=== PATIENT | female | born 1955 | race Caucasian/White ===

== ENCOUNTER 2018-03-25 10:39 | Emergency (ER) | payer BC ==
[2018-03-25] MEDS ORDERED: HYDROcodone/ACETAMIN 5-325 MG* 1 TAB PO ONE (11:43)
[2018-03-25] MEDS ORDERED: Ondansetron ODT TAB* 4 MG SL ONE (11:43)
[2018-03-25] MEDS ORDERED: predniSONE TAB* 5 MG PO ONE (11:44)
[2018-03-25] MEDS ORDERED: predniSONE TAB* 5 MG ONE (11:56)
[2018-03-25] MEDS ORDERED: predniSONE TAB* 20 MG ONE (11:56)
--- NOTE | 2018-03-25 12:44 | RAD ---
Indication: Chronic back pain with worsening following bending over yesterday. RIGHT leg weakness. Comparison: June 14, 2016 DEXA scan. October 20, 2015 radiographs. January 10, 2014 CT. Technique: Noncontrast CT lumbar sacral spine. Multiplanar reformation. Report: Minimal calcific plaque of normal diameter abdominal aorta and common iliac arteries. Negative for fracture or spondylolysis at any level. Normal vertebral alignment without spondylolisthesis at any level. Multilevel very mild vertebral and plate osteophytosis. T12-L1: Unremarkable disc level for age without acquired spinal stenosis. L1-L2: Unremarkable disc level for age without acquired spinal stenosis. L2-L3: Slight annular disc bulge. Negative for significant acquired spinal stenosis. L3-L4: Mild annular disc bulge. Negative for significant acquired spinal stenosis. L4-L5: Mild annular disc bulge. Degenerative spondylosis and facet joint osteoarthritis results in mild acquired central canal stenosis with interval worsening. No significant foraminal stenosis evident. L5-S1: Mild annular disc bulge. Negative for significant acquired spinal stenosis. IMPRESSION: #. At L4-L5 degenerative spondylosis with mild annular disc bulge and posterior element facet ligamentous hypertrophic arthropathy results in mild acquired central canal stenosis with interval worsening compared with the 2013 exam. #. No significant foraminal stenosis evident at any level. #. MRI would allow the most accurate assessment for spinal stenosis.
--- NOTE | 2018-03-25 14:15 | ED ---
Back Pain - HPI Summary HPI Summary: Patient is a 62-year-old female with a history of low back pain presenting to the ED with a three-day worsening history of back pain after bending over to pick something up. She denies any numbness or tingling in the bilateral lower extremities, but endorses some pain to the right leg. She remains ambulatory, but feels that she is more weak to the right leg been to the left leg. Pulses + 2 intact bilaterally. She denies any other symptoms. She has been taking Flexeril and ibuprofen at home with a mild amount of relief. Has been using ice otherwise. PCP is Dr. Beatriz Barrett. - History of Current Complaint Chief Complaint: EDBackInjuryPain Stated Complaint: BACK PAIN Time Seen by Provider: 03/25/18 11:13 Hx Obtained From: Patient Onset/Duration: Sudden Onset Onset/Duration: Started Days Ago Timing: Constant Back Pain Location: Is Discrete @ - low back with radiation to the R anterior leg Pain Intensity: 7 Pain Scale Used: 0-10 Numeric Character: Aching Alleviating Symptom(s): Rest, Position Associated Signs And Symptoms: Positive: Negative - Risk Factors AAA Risk Factors: Negative TAD Risk Factors: Negative Cauda Equina Risk Factors: Negative Epidural Abscess Risk Factors: Negative - Allergies/Home Medications Allergies/Adverse Reactions: Allergies Allergy/AdvReac Type Severity Reaction Status Date / Time albuterol Allergy Hives/Diff. Verified 03/25/18 13:43 Breathing/I tching erythromycin base Allergy Unknown Verified 03/25/18 13:43 Reaction Details Penicillins Allergy Unknown Verified 03/25/18 13:43 Reaction Details Home Medications: Home Medications Estradiol PATCH 0.05MG/DAY* 0.05 mg PATCH OFF DAILY 03/25/18 [History Confirmed 03/25/18] Naproxen 500 mg tab 500 mg PO BID 03/25/18 [History Confirmed 03/25/18] PMH/Surg Hx/FS Hx/Imm Hx Previously Healthy: Yes Endocrine/Hematology History: Denies: Hx Anticoagulant Therapy, Hx Diabetes, Hx Thyroid Disease Cardiovascular History: Denies: Hx Hypertension, Hx Pacemaker/ICD Respiratory History: Reports: Hx Asthma Denies: Hx Chronic Obstructive Pulmonary Disease (COPD) History: Denies: Hx Renal Disease Musculoskeletal History: Denies: Hx Scoliosis Sensory History: Denies: Hx Hearing Aid Neurological History: Denies: Hx Dementia, Hx Headaches, Hx Seizures, Other Neuro Impairments/ Disorders Psychiatric History: Denies: Hx Panic Disorder, Hx Substance Abuse - Cancer History Hx Chemotherapy: No Hx Radiation Therapy: No - Surgical History Surgery Procedure, Year, and Place: TUBAL LIGATION 1979- LEFT OVARY AND TUBE REMOVAL 1987- LAPAROSCOPY 1988. HYSTERECTOMY 1989, HAMMER TOE(PIN REMOVED) - Immunization History Hx Pertussis Vaccination: No Immunizations Up to Date: Unable to Obtain/Confirm Infectious Disease History: No Infectious Disease History: Denies: Hx Hepatitis, Hx Human Immunodeficiency Virus (HIV), Traveled Outside the [place] in Last 30 Days - Social History Occupation: Unemployed Lives: With Family Alcohol Use: Rare Hx Substance Use: No Substance Use Type: Reports: None Hx Tobacco Use: No Smoking Status (MU): Never Smoked Tobacco Review of Systems Negative: Fever, Chills, Fatigue, Skin Diaphoresis Negative: Palpitations, Chest Pain Negative: Shortness Of Breath, Cough Genitourinary: Negative Positive: no symptoms reported, see HPI Positive: Arthralgia, Myalgia Skin: Negative Neurological: Negative All Other Systems Reviewed And Are Negative: Yes Physical Exam Triage Information Reviewed: Yes Vital Signs On Initial Exam: Initial Vitals Temp Pulse Resp BP Pulse Ox 97.7 F 79 16 135/97 98 03/25/18 10:44 03/25/18 10:44 03/25/18 10:44 03/25/18 10:44 03/25/18 10:44 Vital Signs Reviewed: Yes Appearance: Positive: Well-Appearing, Well-Nourished Skin: Positive: Warm, Skin Color Reflects Adequate Perfusion Head/Face: Positive: Normal Head/Face Inspection Eyes: Positive: EOMI, NENO, Conjunctiva Clear Neck: Positive: Supple, No Lymphadenopathy Respiratory/Lung Sounds: Positive: Clear to Auscultation, Breath Sounds Present Cardiovascular: Positive: RRR, Pulses are Symmetrical in both Upper and Lower Extremities Musculoskeletal: Positive: Pain @ - mid low back pain with radiculopathy to the anterior/lateral right leg without noticeable weakness or foot drop Neurological: Positive: Sensory/Motor Intact, Alert, Oriented to Person Place, Time, Speech Normal Psychiatric: Positive: Normal, Affect/Mood Appropriate AVPU Assessment: Alert Diagnostics - Vital Signs Vital Signs Temp Pulse Resp BP Pulse Ox 03/25/18 10:44 97.7 F 79 16 135/97 98 - Laboratory Lab Statement: Any lab studies that have been ordered have been reviewed, and results considered in the medical decision making process. Back Pain Course/Dx - Course Course Of Treatment: While appropriate course of treatment for acute back pain or strain is approximately a 6 week conservative measures, she is endorsing which she feels is to be right-sided weakness to the right leg without numbness or tingling and endorses mid spine low back pain, which appropriate diagnosis could be made with CT at this time.. History of low back injury. She has not had an MRI or CT for many years. CTA obtained which shows: IMPRESSION: #. At L4-L5 degenerative spondylosis with mild annular disc bulge and posterior element. facet ligamentous hypertrophic arthropathy results in mild acquired central canal stenosis. with interval worsening compared with the 2014 exam. # . No significant foraminal stenosis evident at any level. #. MRI would allow the most accurate assessment for spinal stenosis. Denies any bladder or bowel dysfunction. Pulses +2 bilaterally. No step-off noted. She will follow-up with Dr. Wood. Referral is given. Hydrocodone, Flexeril, tapered dose of steroids given as prescription. She will follow-up with Dr. Barrett for a physical therapy referral. - Diagnoses Differential Diagnosis/HQI/PQRI: Positive: Fracture, Herniated Disc, Strain, Sprain Provider Diagnoses: Spondylosis, Back pain Discharge - Sign-Out/Discharge Documenting (check all that apply): Patient Departure - Discharge Plan Condition: Stable Disposition: HOME Prescriptions: Cyclobenzaprine TAB* [Flexeril TAB*] 10 mg PO BID PRN #14 tab PRN Reason: Pain Patient Education Materials: Lumbar Radiculopathy (ED), Lower Back Exercises ( ED) Referrals: Beatriz Barrett MD [Primary Care Provider] - Additional Instructions: Please obtain physical therapy referral through Dr. Beatriz Barrett Hydrocodone may be used up to every 4 hours, but usually can be extended to every 6-8 depending on your pain level Prednisone taper, start tomorrow morning with 2 tabs Prednisone taper: Sunday 2 tabs Sunday 2 tabs 1 tab Sunday 1 tab Continue with Flexeril as needed Moist heat to the area Gentle stretches - Billing Disposition and Condition Condition: STABLE Disposition: Home
[2018-03-25 14:38] VITALS: BP 132/85
== END 2018-03-25 13:55 | disposition home or self-care (01) ==
LOC: ED 10:39
DX: M47.9 Spondylosis, unspecified (principal); M54.5 Low back pain
CPT/HCPCS: 72131; 99282; A9270-GY; J7512

== ENCOUNTER 2018-07-25 10:49 | Emergency (ER) | payer OTHER ==
[2018-07-25] MEDS ORDERED: Ketorolac INJ* 30 MG/ML 1 ML VIAL IM ONE (11:45)
[2018-07-25] MEDS ORDERED: Lidocaine PATCH 5%* 1 PATCH TRANSDERM ONE (11:45)
[2018-07-25] MEDS ORDERED: Methocarbamol TAB* 500 MG PO ONE (11:46)
--- NOTE | 2018-07-25 12:36 | ED ---
Back Pain - HPI Summary HPI Summary: 62 year old female presents with acute on chronic back pain. She has history of back pain as has history slipped disc. No numbness or tingling that is new. She has history of right leg paresthesias. States her sciatic nerve is acting up. She denies any loss of bowel or bladder saddle anesthesia. No fevers. No urinary symptoms. She had a MRI couple months ago. She is states that she tried flexeril and hydrocodone at home. She states that she is on her feet a lot at work and is unable to work due to the pain. - History of Current Complaint Chief Complaint: EDBackInjuryPain Stated Complaint: BACK PAIN Time Seen by Provider: 07/25/18 11:26 Pain Intensity: 7 - Allergies/Home Medications Allergies/Adverse Reactions: Allergies Allergy/AdvReac Type Severity Reaction Status Date / Time albuterol Allergy Hives/Diff. Verified 03/25/18 13:43 Breathing/I tching erythromycin base Allergy Unknown Verified 03/25/18 13:43 Reaction Details Penicillins Allergy Unknown Verified 03/25/18 13:43 Reaction Details PMH/Surg Hx/FS Hx/Imm Hx Endocrine/Hematology History: Denies: Hx Anticoagulant Therapy, Hx Diabetes, Hx Thyroid Disease Cardiovascular History: Denies: Hx Hypertension, Hx Pacemaker/ICD Respiratory History: Reports: Hx Asthma Denies: Hx Chronic Obstructive Pulmonary Disease (COPD) History: Denies: Hx Renal Disease Musculoskeletal History: Denies: Hx Scoliosis Sensory History: Denies: Hx Hearing Aid Neurological History: Denies: Hx Dementia, Hx Headaches, Hx Seizures, Other Neuro Impairments/ Disorders Psychiatric History: Denies: Hx Panic Disorder, Hx Substance Abuse - Cancer History Hx Chemotherapy: No Hx Radiation Therapy: No - Surgical History Surgery Procedure, Year, and Place: TUBAL LIGATION 1979- LEFT OVARY AND TUBE REMOVAL 1987- LAPAROSCOPY 1988. HYSTERECTOMY 1989, HAMMER TOE(PIN REMOVED) Infectious Disease History: No Infectious Disease History: Denies: Hx Hepatitis, Hx Human Immunodeficiency Virus (HIV), Traveled Outside the [place] in Last 30 Days - Family History Known Family History: Positive: Non-Contributory - Social History Alcohol Use: Rare Hx Substance Use: No Substance Use Type: Reports: None Hx Tobacco Use: No Smoking Status (MU): Never Smoked Tobacco Review of Systems Negative: Fever Negative: Chest Pain Negative: Shortness Of Breath Positive: Myalgia - back pain All Other Systems Reviewed And Are Negative: Yes Physical Exam Triage Information Reviewed: Yes Vital Signs On Initial Exam: Initial Vitals Temp Pulse Resp BP Pulse Ox 98.8 F 82 18 96/82 100 07/25/18 10:56 07/25/18 10:56 07/25/18 10:56 07/25/18 10:56 07/25/18 10:56 Vital Signs Reviewed: Yes Appearance: Positive: Well-Appearing Skin: Positive: Warm, Dry Head/Face: Positive: Normal Head/Face Inspection Eyes: Positive: Normal, Conjunctiva Clear ENT: Positive: Pharynx normal Respiratory/Lung Sounds: Positive: Clear to Auscultation, Breath Sounds Present Cardiovascular: Positive: Normal, RRR Abdomen Description: Positive: Nontender, Soft Bowel Sounds: Positive: Present Musculoskeletal: Positive: Limited @ - back, Other - tendenress right side of back, pos SLR right, good sensation, good pulses Neurological: Positive: Reflexes Intact - patella, Babinski Bilateral - normal Psychiatric: Positive: Normal Diagnostics - Vital Signs Vital Signs Temp Pulse Resp BP Pulse Ox 07/25/18 10:56 98.8 F 82 18 96/82 100 - Laboratory Lab Statement: Any lab studies that have been ordered have been reviewed, and results considered in the medical decision making process. Re-Evaluation - Re-Evaluation First Eval Change: Improved Comment: feeling better Back Pain Course/Dx - Course Course Of Treatment: 62 year old female presents with acute on chronic back pain. She has history of back pain as has history slipped disc. No numbness or tingling that is new. She has history of right leg paresthesias. States her sciatic nerve is acting up. She denies any loss of bowel or bladder saddle anesthesia. No fevers. No urinary symptoms. She had a MRI couple months ago. She is states that she tried flexeril and hydrocodone at home. She states that she is on her feet a lot at work and is unable to work due to the pain. On exam has tenderness over right side of lower back. Positive straight leg straight leg. Neurovascularly intact. Discuss getting imaging and patient declined. Gave lidocaine patch and Robaxin and is feeling better. We'll prescribe muscle relaxer lidocaine and steroid. Told to continue the naproxen. Told to follow with primary. Patient understands agrees with plan. - Diagnoses Provider Diagnoses: Back pain Discharge - Sign-Out/Discharge Documenting (check all that apply): Patient Departure - Discharge Plan Condition: Good Disposition: HOME Prescriptions: Lidocaine PATCH 5%* [Lidoderm 5% Patch*] 1 patch TRANSDERM DAILY #5 patch Methocarbamol TAB* [Robaxin 500 MG TAB*] 500 mg PO TID PRN #21 tab PRN Reason: Pain methylPREDNISolone [Medrol Dosepak 4 MG*] 4 mg PO .SEE JEWEL INSTRUCTION #1 packet Patient Education Materials: Back Pain (ED) Forms: *Work Release Referrals: Beatriz Barrett MD [Primary Care Provider] - Additional Instructions: Follow directions on package for Medrol pack Take robaxin three times a day Apply lidocaine patches to area for up to 12 hours in one 24 hour period Use ibuprofen or Tylenol for pain every 6 hours ice/heat area, move as much as possible Follow up with primary within 5 days Return to ED if develop any new or worsening symptoms - Billing Disposition and Condition Condition: GOOD Disposition: Home
[2018-07-25 12:42] VITALS: BP 110/77
== END 2018-07-25 12:42 | disposition home or self-care (01) ==
LOC: ED 10:49
DX: M54.9 Dorsalgia, unspecified (principal); Z88.1 Allergy status to other antibiotic agents; Z88.0 Allergy status to penicillin; Z88.8 Allergy status to other drugs, medicaments and biological substances
CPT/HCPCS: 96372; 99282; A9270-GY; J1885

== ENCOUNTER 2019-10-08 06:18 | Day surgery (SDC) | payer BC ==
[~2019-10-08 06:18] MED LIST: Acetaminophen TAB* 325 MG PO PRN; Buffered Lidocaine 1% SYRIN* 1 ML/SYRINGE INTRADERM ONE
[2019-10-08] MEDS ORDERED: Midazolam* 1 MG/ML 2 ML VIAL (2 MG) ONE ×2 (07:36→07:47)
[2019-10-08 08:33] VITALS: BP 126/74
[2019-10-08] MEDS ORDERED: Lidocaine 1% MPF ** 5 ML VIAL ONE (09:13)
[2019-10-08] MEDS ORDERED: Phenylephrine OPHTH SOL 2.5%* 2 ML ONE (09:13)
[2019-10-08] MEDS ORDERED: Povidone Iodine 5% OPTH* 30 ML BTL ONE (09:13)
[2019-10-08] MEDS ORDERED: Neomycin/Polymy/Dex OPTH.SUSP* MAXITROL 0.1% 5 ML ONE (09:13)
[2019-10-08] MEDS ORDERED: Proparacaine 0.5% OPHTH.SOL* 15 ML BTL ONE (09:13)
[2019-10-08] MEDS ORDERED: Lidocaine 2% w/ EPI 1:200,000* 20 ML SDV VIAL ONE (09:13)
[2019-10-08] MEDS ORDERED: acetaZOLAMIDE TAB* 250 MG ONE (09:13)
[2019-10-08] MEDS ORDERED: Ketorolac 0.5% OPHTH (NF) 0.5 % 5 ML BTL ONE (09:13)
[2019-10-08] MEDS ORDERED: Cyclopentolate 1% OPTH.SOL* 2 ML BTL ONE (09:13)
--- NOTE | 2019-10-08 11:58 | OP ---
OPERATIVE NOTE: DATE OF OPERATION: 10/08/19 DATE OF : 55 SURGEON: Erik Villalta M.D. PREOPERATIVE DIAGNOSIS: Cataract, left eye. POSTOPERATIVE DIAGNOSIS: Cataract, left eye. OPERATIVE PROCEDURE: Extracapsular cataract extraction with intraocular lens implant, left eye. PROCEDURE: The patient was brought to the operating room after being given 1/2% Alcaine with epineph rine drops in the preoperative area. The eye was prepped and draped in the usual sterile fashion. S terile drape and eyelid speculum were placed. Again, topical 1/2% Alcaine with epinephrine was given . A paracentesis incision was made at the 3 o'clock position with the No.75 blade. Clear cornea inc ision 2.2 x 2.2-mm was created at the 6 o'clock position starting at the anterior limbus using the 2. 2-mm keratome. The anterior chamber was irrigated with 0.4 mL of 1% non-preservative intracameral li docaine and filled with DisCoVisc. A capsulorrhexis was completed using the cystotome and the Utrata forceps. Hydrodissection was performed with balanced salt solution. The lens nucleus was removed wi th the Phacoemulsification handpiece without incident. Cortex was removed with the irrigation-aspira tion handpiece. The capsular bag was re-inflated using DisCoVisc and an [id number] 18.5 implant was inse rted with the shooter, oriented to the 150-degree meridian. All measurements were confirmed with ORA . Horizontal reference reynoso made with the patient in a seated position in the preoperative area. T he irrigation-aspiration handpiece was used to remove all residual DisCoVisc. The eye was refilled w ith balanced salt solution and the wound checked and found to be watertight. Topical Maxitrol drops were given. [id number]/[facility] #: [id number]
== END 2019-10-08 08:25 | disposition home or self-care (01) ==
LOC: OREAST 06:18
PROVIDERS: ATTEND Specialist
DX: H25.812 Combined forms of age-related cataract, left eye (principal); H18.51 Endothelial corneal dystrophy; H40.053 Ocular hypertension, bilateral; J45.909 Unspecified asthma, uncomplicated; Z88.5 Allergy status to narcotic agent; Z88.0 Allergy status to penicillin; Z88.8 Allergy status to other drugs, medicaments and biological substances; Z88.1 Allergy status to other antibiotic agents; Z91.013 Allergy to seafood; Z91.018 Allergy to other foods
CPT/HCPCS: A9270-GY; J2250; V2787

== ENCOUNTER 2019-10-15 06:23 | Day surgery (SDC) | payer BC ==
[2019-10-15] MEDS ORDERED: Midazolam* 1 MG/ML 2 ML VIAL (2 MG) ONE ×3 (07:33→09:23)
[2019-10-15 08:46] VITALS: BP 111/90
[2019-10-15] MEDS ORDERED: acetaZOLAMIDE TAB* 250 MG ONE (09:18)
[2019-10-15] MEDS ORDERED: Lidocaine 1% MPF ** 5 ML VIAL ONE (09:18)
[2019-10-15] MEDS ORDERED: Lidocaine 2% w/ EPI 1:200,000* 20 ML SDV VIAL ONE (09:18)
[2019-10-15] MEDS ORDERED: Phenylephrine OPHTH SOL 2.5%* 2 ML ONE (09:18)
[2019-10-15] MEDS ORDERED: Cyclopentolate 1% OPTH.SOL* 2 ML BTL ONE (09:18)
[2019-10-15] MEDS ORDERED: Ketorolac 0.5% OPHTH (NF) 0.5 % 5 ML BTL ONE (09:18)
[2019-10-15] MEDS ORDERED: Povidone Iodine 5% OPTH* 30 ML BTL ONE (09:18)
[2019-10-15] MEDS ORDERED: Neomycin/Polymy/Dex OPTH.SUSP* MAXITROL 0.1% 5 ML ONE (09:18)
[2019-10-15] MEDS ORDERED: Proparacaine 0.5% OPHTH.SOL* 15 ML BTL ONE (09:18)
--- NOTE | 2019-10-16 02:22 | OP ---
DATE OF OPERATION: 10/15/19 - LOCATED WITHIN [facility] DATE OF : 55 SURGEON: Erik Villalta M.D. PREOPERATIVE DIAGNOSIS: Cataract, right eye. POSTOPERATIVE DIAGNOSIS: Cataract, right eye. OPERATIVE PROCEDURE: Extracapsular cataract extraction with intraocular lens implant, right eye. DESCRIPTION OF PROCEDURE: The patient was brought to the operating room after being given 1/2% Alcaine with epinephrine drops in the preoperative area. The eye was prepped and draped in the usual sterile fashion. Sterile drape and eyelid speculum were placed. Again, topical 1/2% Alcaine with epinephrine was given. A paracentesis incision was made at the 9 o'clock position with the No. 75 blade. Clear cornea incision 2.2 x 2.2-mm was created at the 12 o'clock position starting at the anterior limbus using the 2.2-mm keratome. The anterior chamber was irrigated with 0.4 mL of 1% non-preservative intracameral lidocaine and filled with DisCoVisc. A capsulorrhexis was completed using the cystotome and the Utrata forceps. Hydrodissection was performed with balanced salt solution. The lens nucleus was removed with the Phacoemulsification handpiece without incident. Cortex was removed with the irrigation-aspiration handpiece. The capsular bag was re-inflated using DisCoVisc and an [id number] 18.5 implant was inserted with the shooter, oriented to the 38-degree meridian. All measurements were confirmed with ORA. Horizontal reference reynoso were made with the patient in seated position in the preoperative area. The irrigation- aspiration handpiece was used to remove all residual DisCoVisc. The eye was refilled with balanced salt solution and the wound checked and found to be watertight. Topical Maxitrol drops were given. [id number]/[facility] #: [id number] [facility]
== END 2019-10-15 08:30 | disposition home or self-care (01) ==
LOC: OREAST 06:23
PROVIDERS: ATTEND Specialist
DX: H25.811 Combined forms of age-related cataract, right eye (principal); H18.51 Endothelial corneal dystrophy; H40.053 Ocular hypertension, bilateral; Z88.0 Allergy status to penicillin; Z88.1 Allergy status to other antibiotic agents; J45.909 Unspecified asthma, uncomplicated; F41.8 Other specified anxiety disorders; L30.1 Dyshidrosis [pompholyx]
CPT/HCPCS: A9270-GY; J2250; V2787